=== PATIENT | female | born 1975 | race Hispanic/Latino ===

== ENCOUNTER → 2020-12-25 | Outpatient (CLI) | payer BC, OTHER ==
[~2020-12-25] MED LIST: COVID-19 VACC, MRNA(MODERNA)/PF 100 MCG/0.5 ML VIAL IM ONE
== END ==
LOC: VACCPMC 18:06
DX: Z23 Encounter for immunization (principal); Z20.822 Contact with and (suspected) exposure to COVID-19
CPT/HCPCS: 91301

== ENCOUNTER → 2021-01-22 | Outpatient (CLI) | payer BC, OTHER | END | disposition home or self-care (01) | LOC: VACCPMC 14:07 | DX: Z23 Encounter for immunization (principal); Z20.822 Contact with and (suspected) exposure to COVID-19 | CPT/HCPCS: 91301 ==

== ENCOUNTER 2021-09-26 16:59 | Emergency (ER) | payer BC, OTHER ==
[~2021-09-26] VITALS: Ht 162.6 cm; Wt 69.6 kg
[2021-09-26] MEDS ORDERED: IBUPROFEN 600 MG TAB PO STA (17:19)
[2021-09-26] MEDS ORDERED: IBUPROFEN 600 MG TAB ONE (17:50)
[2021-09-26] MEDS ORDERED: ZITHROMAX250 MG PO (18:10)
== END 2021-09-26 18:23 | disposition home or self-care (01) ==
LOC: FSED 17:20
DX: U07.1 COVID-19 (principal); J20.8 Acute bronchitis due to other specified organisms; J02.9 Acute pharyngitis, unspecified
CPT/HCPCS: 87400; 99283; U0002